=== PATIENT | male | born 1980 | race Caucasian/White ===

== ENCOUNTER 2024-05-08 11:14 | Emergency (ER) | payer MEDICAID, SELFPAY ==
--- NOTE | 2024-05-08 11:21 | PD.EDADULT ---
ED General RME/HPI General Chief complaint: Seizure Stated complaint: SEIZURES Time Seen by Provider: 05/08/24 11:19 Arrival date/time: 05/08/24 11:14 CC: Seizure HPI patient presents to the ER via EMS who report tachycardia, the patient has hand tremens denies that there is anything wrong with him does not recall having a seizure. EMS report the patient is a daily alcohol drinking a pint of hard alcohol a day, the patient states he drank yesterday. Patient denies any pain. Denies any shortness of breath or difficulty breathing. now at bedside who describes the patient was standing in the kitchen and suddenly dropped, she said he is arms tensed up and his eyes rolled up back up in his head lasting approximately 1 minute after which the patient vomited times once woke up and attempted to stand up but was wobbly at that time she placed him in a chair and called 911. Patient also admits to drinking each morning every day and decided not to drink this morning because he had an appointment at [facility]. At 1443 it was advised the patient refused labs, talk to the patient he is now agreeable to having labs drawn. remains at bedside. CIWA of 9 Related Data Previous Rx's ?Medication ?Instructions ?Recorded chlordiazepoxide HCl 25 mg capsule 25 mg PO BID #20 caps 05/08/24 chlordiazepoxide HCl 25 mg capsule 25 mg PO BID PRN alcohol 05/08/24 withdrawal #14 caps Allergies Allergy/AdvReac Type Severity Reaction Status Date / Time No Known Allergies Allergy Verified 05/08/24 11:44 Review of Systems Review of Systems Narrative Review of Systems: GEN: No fever, no chills, no weight loss EYES: No discharge, no visual changes, no pain HEENT: No ear pain, no congestion, no sore throat PULM: No shortness of breath, no cough, no congestion CV: No chest pain, no dyspnea on exertion, no palpitations GI: No nausea, no vomiting, no diarrhea, no pain, no constipation : No frequency, no urgency, no dysuria MUSC/SKEL: No joint pain, no back pain SKIN: No rash PSYCH: No hallucinations, no depression HEME/LYMPH: No easy bleeding or bruising tendencies NEURO: No weakness, no headache ED Exam Narrative Physical exam: [General: Mildly agitated but not in any acute distress Head normocephalic HEENT: Eyes pupils are PERRLA EOMs are intact nose no rhinorrhea all other subsystems of HEENT are within acceptable limits Neck is supple nontender Chest equal chest rise nontender to palpation Respiratory: Clear to auscultation no wheezes crackles or rubs CV: Rate rhythm is regular, tachycardic, no murmurs rubs or clicks Abdomen is soft nontender no masses positive bowel sounds all 4 quadrants Back: No CVA tenderness no spinous process tenderness from cervical spine thoracic and lumbar spine Skin: Intact no petechiae rash induration ulceration or crepitus Extremities: Moving all extremity against resistance cap refill less than 2 seconds neurosensory intact Neuro: Awake alert oriented x3 Glascow coma 15 no focal deficits] Course Quality Measures none Orders Category Date Time Status Saline [Insert IV] NOW Care 05/08/24 11:20 Active Alcohol, Blood Medical Stat Lab 05/08/24 14:49 Completed B-Type Natriuretic Peptide Stat Lab 05/08/24 14:49 Completed CBC Stat Lab 05/08/24 14:49 Completed CMP [Comprehensive Metabolic Panel] Stat Lab 05/08/24 14:49 Completed Drug Screen,Urine Stat Lab 05/08/24 14:40 Completed LDH (Lactate Dehydrogenase) Stat Lab 05/08/24 14:49 Completed Magnesium Stat Lab 05/08/24 14:49 Completed Partial Thromboplastin Time Stat Lab 05/08/24 14:49 Completed Prothrombin Time with INR Stat Lab 05/08/24 14:49 Completed Troponin I Stat Lab 05/08/24 14:49 Completed Urinalysis Stat Lab 05/08/24 14:40 Completed LORazepam [Ativan Inj] Med 05/08/24 11:20 Discontinued 2 mg IVP X1 ONE Sodium Chloride 0.9% 1000 ml [Ns] 1,000 ml Med 05/08/24 11:21 Discontinued IV 999 mls/hr Vital Signs Vital signs: Vital Signs Temperature 98.2 F 05/08/24 11:23 Pulse Rate 116 H 05/08/24 11:23 Respiratory Rate 18 05/08/24 11:23 Blood Pressure 173/106 H 05/08/24 11:23 Pulse Oximetry (%) 98 05/08/24 11:23 Oxygen Delivery Method Room Air 05/08/24 11:23 [facility] Patient data External records reviewed:: [facility] previous records and EMS form Clinical information provided by:: patient and EMS Social determinants that could affect healthcare access:: alcohol use Patient has the following chronic illnesses:: Alcohol How is presenting disease/condition affected by chronic disease/condition?: exacerbated by Evaluation data The following diagnostics were reviewed and interpreted by me:: lab results Lab and/or radiology exams considered but not ordered:: CBC shows no acute leukocytosis anemia thrombocytopenia CMP shows no acute electrolyte imbalances renal impairment transaminitis or T. bili elevation Lipase is negative Alcohol is negative Coags within acceptable limits Urine is negative for UTI UDS is positive for THC. Interpretation Summary: Patient had initial CIWA of 9, the patient seems to be much more relaxed at this time we will discharge the patient home to try outpatient detox. The patient is already been through detox twice per the . Medications Medications considered but not ordered:: None Medication administrations:: Medication Administration History Discontinued Medications Sodium Chloride (Ns) 1,000 mls @ 999 mls/hr IV .Q1H1M ONE Stop: 05/08/24 12:21 Last Infusion: 05/08/24 13:41 Dose: Infused Documented By: Admin: 05/08/24 12:02 Dose: 999 mls/hr Documented By: JOHN Lorazepam (Lorazepam 2 Mg/Ml Vial) 2 mg IVP X1 ONE Stop: 05/08/24 11:21 Last Admin: 05/08/24 12:02 Dose: 2 mg Documented By: JOHN None Consultations Consultation(s) initiated? (list below): No Diagnosis Differential Diagnosis ED Complaint MDM: Alcohol withdrawal seizure disorder pseudoseizures syncope Most likely diagnosis given after review of the tests above:: Syncope Admission Indicated Admission indicated?: not indicated Explain why admission is indicated or not indicated:: Stable for discharge Admission Request Was there a request for admission?: No Disposition Plan Disposition Plan: Discharge Discharge Attestation Discharge Attestation: The patient and all family members were given an opportunity to ask questions and understood the discharge instructions. Discharge instructions specifically effects, indications for sooner follow up or return to the emergency department, and the expected course of current diagnosis. Patient condition: Stable Medical Decision Making Differential Diagnosis Differential Diagnosis: Alcohol withdrawal seizure disorder pseudoseizures syncope Lab Data 05/08/24 14:49 05/08/24 14:49 Labs: Lab Results 05/08/24 05/08/24 Range/Units 14:40 14:49 WBC 11.3 H (3.8-10.6) Thou/mm3 RBC 4.30 L (4.50-5.90) Miln/mm3 Hgb 14.3 (13.5-16.0) g/dL Hct 40.8 L (41.0-53.0) % MCV 95 (80-100) fL MCH 33.3 (25.0-35.0) pg MCHC 35.0 (31.0-37.0) g/dl RDW Std Deviation 49.4 H (35.1-43.9) fL Plt Count 73 L (140-440) Thou/mm3 Neut % (Auto) 78 (37-80) % Lymph % (Auto) 12 (10-50) % [place] % (Auto) 9 (0-12) % Eos % (Auto) 0 (0-10) % Baso % (Auto) 1 (0-2.5) % Neut # (Auto) 8.8 H (1.8-7.7) Thou/mm3 Lymph # (Auto) 1.3 (1.0-4.8) Thou/mm3 [place] # (Auto) 1.0 H (0.0-0.8) Thou/mm3 Eos # (Auto) 0.0 (0.0-0.5) Thou/mm3 Baso # (Auto) 0.1 (0.0-0.2) Thou/mm3 Immature Gran # (Auto) 0.05 H (0.00-0.00) Thou/mm3 Absolute Nucleated RBC 0.00 (0.00-0.00) Thou/mm3 Immature Gran % 0 (0-0) % Nucleated RBC % 0 (0) /100 WBC PT 10.8 (9.0-12.2) Seconds INR 1.0 (0.9-1.3) APTT 23.6 (22.0-36.0) Seconds Sodium 137 (136-145) mMol/L Potassium 4.3 (3.4-5.1) mMol/L Chloride 104 (98-107) mMol/L Carbon Dioxide 24.8 (20.0-31.0) mMol/L Anion Gap 8 (7-16) BUN 10 (9-23) mg/dL Creatinine 0.8 (0.6-1.3) mg/dL Estim Creat Clear Calc 116.9 (>60) mL/min eGFR > 60 (60 - ) See Note BUN/Creatinine Ratio 13 (12-20) Ratio Glucose 94 (74-106) mg/dL Calculated Osmolality 272 L (275-295) Calcium 9.8 (8.3-10.6) mg/dL Corrected Calcium 9.8 (8.5-10.1) mg/dL Magnesium 2.0 (1.6-2.6) mg/dL Total Bilirubin 0.9 (0.3-1.2) mg/dL AST 107 H (0-34) U/L ALT 78 H (10-49) U/L Alkaline Phosphatase 101 (46-116) U/L Lactate Dehydrogenase 301 H (120-246) U/L Troponin I < 0.020 (0.0-0.045) ng/mL B-Natriuretic Peptide < 20 (0-100) pg/mL Total Protein 7.1 (5.7-8.2) gm/dL Albumin 4.5 (3.5-5.0) gm/dL Globulin 2.6 (2.3-3.5) gm/dL Albumin/Globulin Ratio 1.7 (1.2-2.2) Ur Collection Type Clean Catch Urine Color Lt-Yellow (Lt Yel-Yel) Urine Clarity Clear (Clear/Hazy) Urine pH 7.5 H (5.0-7.0) Ur Specific [place] 1.015 (1.001-1.035) Urine Protein 1+ A (Neg - Trace) Urine Glucose (UA) 2+ A (Negative) Urine Ketones Trace (Negative) Urine Blood Negative (Negative) Urine Nitrite Negative (Negative) Urine Bilirubin Negative (Negative) Urine Urobilinogen (Auto) Negative (0.0-1.0) mg/dL Ur Leukocyte Esterase Negative (Negative) Urine RBC 1 (0-3) /hpf Urine WBC 1 (0-5) /hpf Ur Squamous Epith Cells 0 (0-5) /hpf Urine Bacteria None (None) Urine Sperm Present A (None) Urine Opiates Screen Negative (Negative) Urine Fentanyl Screen Negative (Negative) Ur Barbiturates Screen Negative (Negative) U Amphetamin/Meth Scrn Negative (Negative) U Benzodiazepines Scrn Negative (Negative) U Cocaine Metab Screen Negative (Negative) U Marijuana (THC) Screen Positive A (Negative) Ethyl Alcohol < 3.0 (0-10.0) mg/dL Misc Test Result Platelets confirmed Discharge Plan Plan Patient Disposition: HOME (Self Care) Patient condition on transfer: Stable Prescriptions/Referrals Prescriptions/Med Rec: New chlordiazepoxide HCl 25 mg capsule 25 mg PO BID PRN (Reason: alcohol withdrawal) Qty: 14 0RF Referrals: Oren Rodriguez MD [Physician] - In 1 week No Primary/Family,Physician [Primary Care Provider] - In 1 week Problem List Clinical Impression: Alcohol withdrawal Patient/Caregiver Discharge Instructions Education Materials: Alcohol Withdrawal: What to Expect Additional Instructions: Take the medications as prescribed, follow-up with a primary care doctor and consider the sources that were handed to you. Print Language: Upper Sorbian Stand Alone Forms: Angie Award Info., Work/School Release, Patient Portal Info Letter PA/4 H YOU[employer] DEVELOPMENT SPECIALIST Supervising Physician PA/4 H YOU[employer] DEVELOPMENT SPECIALIST Supervising Physician: Cecil Goins ENP
[2024-05-08 11:23] VITALS: BP 173/106; PULSE 116; RESP 18; TEMP 36.8; O2SAT 98
[2024-05-08 11:40] VITALS: PULSE 128; RESP 18; O2SAT 98
[2024-05-08 11:43] VITALS: BMI 21.5
[2024-05-08] MEDS: LORazepam 2 MG/ML VIAL IVP (12:02)
[2024-05-08] MEDS: SODIUM CHLORIDE 0.9% 1000 ML 1,000 ML 999 ML IV (12:02)
--- NOTE | 2024-05-08 12:06 | PC.NURSE ---
Patient moved from ambulance bay and taken to rm 14 with c/o seizure activity at home witnessed by at bedside at this time. patient was standing and fell having full body shaking, lasted approx. 1 min, h/o alcohol abuse with 1 other seizure prior to this visit. Last drink night, he drank vodka, not sure how much.
--- NOTE | 2024-05-08 13:42 | PC.NURSE ---
Patient provided with urinal to obtain urine sample, at bedside will assist patient if needed.
[2024-05-08 13:43] VITALS: BP 148/99; PULSE 89; RESP 19; O2SAT 95
[2024-05-08 14:14] VITALS: BP 146/106; BP 152/110; PULSE 106; RESP 18; TEMP 36.7; O2SAT 97
[2024-05-08 14:58] LABS: Collection Type, Urine Clean Catch; Squamous Epithelial Cell,Urine 0 /hpf (0-5)
[2024-05-08 15:02] LABS: Basophils # (Auto) 0.1 Thou/mm3 (0.0-0.2); Basophils % (Auto) 1 % (0-2.5); Eosinophils % (Auto) 0 % (0-10); Hematocrit 40.8 % (41.0-53.0); Hemoglobin 14.3 g/dL (13.5-16.0); Immature Granulocytes % (Auto) 0 % (0-0); Immature Granulocytes Auto 0.05 Thou/mm3 (0.00-0.00); Lymphocytes # (Auto) 1.3 Thou/mm3 (1.0-4.8); Lymphocytes % (Auto) 12 % (10-50); Mean Corpuscular Hemoglobin 33.3 pg (25.0-35.0); Mean Corpuscular Volume 95 fL (80-100); Monocytes % (Auto) 9 % (0-12); Neutrophils # (Auto) 8.8 Thou/mm3 (1.8-7.7); Neutrophils % (Auto) 78 % (37-80); Nucleated Red Blood Cell % 0 /100 WBC (0); RDW Standard Deviation 49.4 fL (35.1-43.9); White Blood Count 11.3 Thou/mm3 (3.8-10.6)
[2024-05-08 15:03] LABS: Platelet Count 73 Thou/mm3 (140-440)
[2024-05-08 15:19] LABS: Partial Thromboplastin Time 23.6 Seconds (22.0-36.0); Prothrombin Time 10.8 Seconds (9.0-12.2)
[2024-05-08 15:20] LABS: Slide Review Platelets confirmed
[2024-05-08 15:24] LABS: Bilirubin,Urine Negative (Negative); Blood,Urine Negative (Negative); Clarity,Urine Clear (Clear/Hazy); Color,Urine Lt-Yellow (Lt Yel-Yel); Glucose, Urine 2+ (Negative); Ketones,Urine Trace (Negative); Leukocyte Esterase,Urine Negative (Negative); Nitrite,Urine Negative (Negative); PH,Urine 7.5 (5.0-7.0); Protein,Urine 1+ (Neg - Trace); RBC,Urine 1 /hpf (0-3); Specific Gravity,Urine 1.015 (1.001-1.035); Urobilinogen,Urine Negative mg/dL (0.0-1.0); WBC,Urine 1 /hpf (0-5)
[2024-05-08 15:30] LABS: Sperm,Urine Present
[2024-05-08 15:35] LABS: Alanine Aminotransferase 78 U/L (10-49); Albumin, Serum 4.5 gm/dL (3.5-5.0); Albumin/Globulin Ratio 1.7 (1.2-2.2); Alcohol, Blood Medical < 3.0 mg/dL (0-10.0); Alkaline Phosphatase 101 U/L (46-116); Anion Gap 8 (7-16); Aspartate Amino Transferase 107 U/L (0-34); BUN/Creatinine Ratio 13 Ratio (12-20); Bilirubin,Total 0.9 mg/dL (0.3-1.2); Blood Urea Nitrogen 10 mg/dL (9-23); Calcium 9.8 mg/dL (8.3-10.6); Calcium (Corrected) 9.8 mg/dL (8.5-10.1); Carbon Dioxide 24.8 mMol/L (20.0-31.0); Chloride 104 mMol/L (98-107); Creatinine (Component) 0.8 mg/dL (0.6-1.3); Estimated Creatinine Clearance 116.9 mL/min (>60); Globulin 2.6 gm/dL (2.3-3.5); Glucose 94 mg/dL (74-106); LDH (Lactate Dehydrogenase) 301 U/L (120-246); Osmolality,Calculated 272 (275-295); Potassium 4.3 mMol/L (3.4-5.1); Sodium 137 mMol/L (136-145); Total Protein 7.1 gm/dL (5.7-8.2); Troponin I < 0.020 ng/mL (0.0-0.045); eGFR > 60 See Note
[2024-05-08 15:35] LABS: Amphetamine/Methamp Scrn,U Negative (Negative); Barbiturate Screen,Urine Negative (Negative); Benzodiazepines Screen,Urine Negative (Negative); Benzoylecgonine Screen, Ur Negative (Negative); Fentanyl Screen,Urine Negative (Negative); Opiate Screen,Urine Negative (Negative); THC Screen,Urine Positive (Negative)
[2024-05-08 15:43] LABS: B-Type Natriuretic Peptide < 20 pg/mL (0-100)
[2024-05-08 16:04] VITALS: BP 131/98; RESP 18; O2SAT 97
[2024-05-08 16:48] VITALS: BP 153/93; PULSE 84; RESP 19; TEMP 37.1; O2SAT 97
== END 2024-05-08 17:02 | disposition home or self-care (01) ==
PROVIDERS: Registered Nurse General Practice; Emergency Provider Emergency Medicine
DX: F10.939 Alcohol use, unspecified with withdrawal, unspecified (principal); Y90.0 Blood alcohol level of less than 20 mg/100 ml
CPT/HCPCS: 36415; 80053; 80307; 80320; 81001; 83615; 83735; 83880; 84484; 85025; 85610; 85730; 96361; 96374; 99284; J2060; J7030; G0480